=== PATIENT | female | born 1945 | race Caucasian/White ===

== ENCOUNTER 2023-12-30 08:17 | Outpatient (RCR) | payer MEDICARE, OTHER, SELFPAY ==
[2023-12-30 08:40] VITALS: BP 152/66
[2023-12-30] MEDS: XOLAIR 1.19999999999999996 MG SC ×2 (09:06→09:07)
[2023-12-30 10:31] LABS: TSH Reflex To Free T4 5.92 uIU/ml (0.47-4.68)
[2023-12-30 10:59] LABS: Free T4 1.18 ng/dl (0.78-2.19)
== END 2023-12-31 08:51 | disposition home or self-care (01) ==
LOC: OID 08:17
PROVIDERS: ATTENDING PHYSICIAN Internal Medicine; FAMILY PHYSICIAN Nurse Practitioner Family
DX: J45.50 Severe persistent asthma, uncomplicated (principal)
CPT/HCPCS: 36415; 84439; 84443; 96372; J2357

== ENCOUNTER 2024-01-27 08:23 | Outpatient (RCR) | payer MEDICARE, OTHER, SELFPAY ==
[2024-01-27 08:50] VITALS: BP 170/71
[2024-01-27] MEDS: XOLAIR 1.19999999999999996 MG SC ×2 (09:09→09:10)
[2024-01-27 12:40] VITALS: BP 155/72
== END 2024-01-28 11:13 | disposition home or self-care (01) ==
LOC: OID 08:23
PROVIDERS: ATTENDING PHYSICIAN Internal Medicine; FAMILY PHYSICIAN Nurse Practitioner Family
DX: J45.50 Severe persistent asthma, uncomplicated (principal)
CPT/HCPCS: 96372; J2357

== ENCOUNTER 2024-02-24 08:15 | Outpatient (RCR) | payer MEDICARE, OTHER, SELFPAY ==
[2024-02-24 08:45] VITALS: BP 146/73
[2024-02-24] MEDS: XOLAIR 1.19999999999999996 MG SC ×2 (08:59)
== END 2024-03-07 23:59 | disposition home or self-care (01) ==
LOC: OID 08:15
PROVIDERS: ATTENDING PHYSICIAN Internal Medicine; FAMILY PHYSICIAN Nurse Practitioner Family
DX: J45.50 Severe persistent asthma, uncomplicated (principal)
CPT/HCPCS: 96372; J2357

== ENCOUNTER → 2024-03-09 14:22 | Outpatient (REF) | payer MEDICARE, OTHER, SELFPAY | LOC: WDC 14:22 | PROVIDERS: ATTENDING PHYSICIAN Nurse Practitioner Family | DX: Z12.31 Encounter for screening mammogram for malignant neoplasm of breast (principal) | CPT/HCPCS: 77063; 77067 ==

== ENCOUNTER → 2024-03-15 09:47 | Outpatient (REF) | payer MEDICARE, OTHER, SELFPAY ==
[2024-03-15 12:13] LABS: Free T4 1.18 ng/dl (0.78-2.19)
== END ==
LOC: REG 09:47
PROVIDERS: ATTENDING PHYSICIAN Nurse Practitioner Family
DX: E03.9 Hypothyroidism, unspecified (principal)
CPT/HCPCS: 36415; 84439; 84443

== ENCOUNTER 2024-03-23 08:14 | Outpatient (RCR) | payer MEDICARE, OTHER, SELFPAY ==
[2024-03-23 08:51] VITALS: BP 155/69
[2024-03-23] MEDS: XOLAIR 1.19999999999999996 MG SC ×2 (09:12→09:13)
== END 2024-03-24 08:56 | disposition home or self-care (01) ==
LOC: OID 08:14
PROVIDERS: ATTENDING PHYSICIAN Internal Medicine; FAMILY PHYSICIAN Nurse Practitioner Family
DX: J45.50 Severe persistent asthma, uncomplicated (principal)
CPT/HCPCS: 96372; J2357

== ENCOUNTER → 2024-05-10 09:51 | Outpatient (REF) | payer MEDICARE, OTHER, SELFPAY ==
[2024-05-10 12:19] LABS: % Basophils 0.7 % (0-2); % Immature Granulocytes 0.6 % (0-0.5); % Lymphocytes 16.8 % (20.5-51.1); % Monocytes 9.1 % (1.7-9.3); % Neutrophils 69.8 % (42.2-75.2); Absolute Basophils 0.1 10^3/uL (0-0.2); Absolute Eosinophils 0.2 10^3/uL (0-0.7); Absolute Lymphocytes 1.2 10^3/uL (1.2-3.4); Absolute Monocytes 0.7 10^3/uL (0.1-0.6); Absolute Neutrophils 5.1 10^3/uL (1.4-6.5); Hematocrit 36.4 % (37.0-47.0); Hemoglobin 11.7 g/dL (12.0-16.0); Mean Corp Hgb Conc. 32.1 g/dL (33.0-37.0); Mean Corpuscular Hgb 27.3 pg (27.0-31.0); Mean Corpuscular Volume 84.8 fL (81.0-99.0); Mean Platelet Volume 9.9 fL (7.4-10.4); Nucleated Red Blood Cells % 0 %; Platelet Count 313 10^3/uL (130-400); Red Blood Cell Count 4.29 10^6/uL (4.20-5.40); Red Cell Dist. Width 16.7 % (11.5-14.5); White Blood Cell Count 7.3 10^3/uL (4.8-10.8)
[2024-05-10 12:50] LABS: ALT (SGPT) 19 U/L (0-35); AST (SGOT) 32 U/L (14-36); Albumin 4.2 g/dl (3.5-5.0); Alkaline Phosphatase 126 U/L (38-126); Blood Urea Nitrogen 13 mg/dl (7-17); Calcium 9.7 mg/dl (8.4-10.2); Carbon Dioxide 27 mmol/L (22-30); Chloride 103 mmol/L (98-107); Glucose 102 mg/dl (70-99); HDL Cholesterol 32 mg/dl; Iron 80 ug/dl (37-170); LDL Cholesterol, Calculated 76 mg/dl; Potassium 4.7 mmol/L (3.5-5.1); Sodium 136 mmol/L (135-145); Total Bilirubin 0.7 mg/dl (0.2-1.3); Total Cholesterol 140 mg/dl (50-199); Total Protein 6.9 g/dl (6.3-8.2); Triglyceride 161 mg/dl (10-149); Very Low Density Lipoprotein 32 mg/dl (0-30); eGFR > 60.00
[2024-05-10 12:59] LABS: Percent Saturation 27 % (20-50); Total Iron Binding Capacity 296 ug/dl (265-497)
[2024-05-10 13:13] LABS: TSH 3.87 uIU/ml (0.47-4.68)
[2024-05-10 13:38] LABS: Glycohemoglobin (HgbA1c) 5.1 % (4.0-5.6)
== END ==
LOC: REG 09:51
PROVIDERS: ATTENDING PHYSICIAN Nurse Practitioner Family; REFERRING PHYSICIAN Registered Nurse
DX: I10 Essential (primary) hypertension (principal); E03.9 Hypothyroidism, unspecified; E78.00 Pure hypercholesterolemia, unspecified; R53.82 Chronic fatigue, unspecified; R73.9 Hyperglycemia, unspecified; D62 Acute posthemorrhagic anemia
CPT/HCPCS: 36415; 80053; 80061; 82728; 83036; 83540; 83550; 84443; 85025

== ENCOUNTER 2024-05-18 08:27 | Outpatient (RCR) | payer MEDICARE, OTHER, SELFPAY ==
[2024-05-18 08:30] VITALS: BP 144/67
[2024-05-18] MEDS: XOLAIR 1.2 MG SC ×2 (08:54)
== END 2024-05-19 10:20 | disposition home or self-care (01) ==
LOC: OID 08:27
PROVIDERS: ATTENDING PHYSICIAN Internal Medicine; FAMILY PHYSICIAN Nurse Practitioner Family
DX: J45.50 Severe persistent asthma, uncomplicated (principal)
CPT/HCPCS: 96372; J2357

== ENCOUNTER 2024-06-15 08:08 | Outpatient (RCR) | payer MEDICARE, OTHER, SELFPAY ==
[2024-06-15 08:57] VITALS: BP 156/72
[2024-06-15] MEDS: XOLAIR 1.2 MG SC ×2 (09:07→09:08)
== END 2024-07-07 10:39 | disposition home or self-care (01) ==
LOC: OID 08:08
PROVIDERS: ATTENDING PHYSICIAN Internal Medicine; FAMILY PHYSICIAN Nurse Practitioner Family
DX: J45.50 Severe persistent asthma, uncomplicated (principal)
CPT/HCPCS: 96372; J2357

== ENCOUNTER → 2024-06-20 15:16 | Outpatient (REF) | payer MEDICARE, OTHER, SELFPAY | LOC: PAVMRI 15:16 | PROVIDERS: ATTENDING PHYSICIAN Physician Assistant Medical | DX: M54.50 Low back pain, unspecified (principal); M48.062 Spinal stenosis, lumbar region with neurogenic claudication; M41.86 Other forms of scoliosis, lumbar region; Z98.1 Arthrodesis status | CPT/HCPCS: 72148 ==

== ENCOUNTER 2024-07-13 08:15 | Outpatient (RCR) | payer MEDICARE, OTHER, SELFPAY ==
[2024-07-13 08:37] VITALS: BP 163/69
[2024-07-13] MEDS: XOLAIR 1.2 MG SC ×2 (08:48)
== END 2024-07-14 09:53 | disposition home or self-care (01) ==
LOC: OID 08:15
PROVIDERS: ATTENDING PHYSICIAN Internal Medicine; FAMILY PHYSICIAN Nurse Practitioner Family
DX: J45.50 Severe persistent asthma, uncomplicated (principal)
CPT/HCPCS: 96372; J2357

== ENCOUNTER 2024-09-07 08:17 | Outpatient (RCR) | payer MEDICARE, OTHER, SELFPAY ==
[2024-08-10 08:53] VITALS: BP 136/54
[2024-08-10] MEDS: XOLAIR 1.2 MG SC ×2 (09:08→09:09)
[2024-09-07 08:40] VITALS: BP 139/66
[2024-09-07 08:46] VITALS: BMI 32.9
[2024-09-07] MEDS: XOLAIR 1.2 MG SC ×2 (09:14→09:15)
== END 2024-09-07 23:59 | disposition home or self-care (01) ==
LOC: OID 08:17
PROVIDERS: ATTENDING PHYSICIAN Internal Medicine; FAMILY PHYSICIAN Nurse Practitioner Family
DX: J45.50 Severe persistent asthma, uncomplicated (principal)
CPT/HCPCS: 96372; J2357

== ENCOUNTER → 2024-09-08 10:53 | Outpatient (REF) | payer MEDICARE, OTHER, SELFPAY | LOC: HWRAD 10:53 | PROVIDERS: ATTENDING PHYSICIAN Nurse Practitioner Family | DX: R10.10 Upper abdominal pain, unspecified (principal) | CPT/HCPCS: 76700 ==

== ENCOUNTER → 2024-09-26 06:20 | Day surgery (SDC) | payer MEDICARE, OTHER, SELFPAY | LOC: GI 06:20 | PROVIDERS: ATTENDING PHYSICIAN Internal Medicine Gastroenterology | PROC: 0DJ08ZZ Inspection of Upper Intestinal Tract, Via Natural or Artificial Opening Endoscopic (ICD-10-PCS; 2024-09-26) | DX: K22.70 Barrett's esophagus without dysplasia (principal); K31.89 Other diseases of stomach and duodenum | CPT/HCPCS: 43235 ==

== ENCOUNTER 2024-10-06 07:34 | Outpatient (RCR) | payer MEDICARE, OTHER, SELFPAY ==
[2024-10-06 07:48] VITALS: BP 153/69
[2024-10-06] MEDS: XOLAIR 1.2 MG SC ×2 (08:33→08:34)
== END 2024-10-07 23:59 | disposition home or self-care (01) ==
LOC: OID 07:34
PROVIDERS: ATTENDING PHYSICIAN Internal Medicine; FAMILY PHYSICIAN Nurse Practitioner Family
DX: J45.50 Severe persistent asthma, uncomplicated (principal)
CPT/HCPCS: 96372; J2357

== ENCOUNTER 2024-10-31 08:13 | Outpatient (RCR) | payer MEDICARE, OTHER, SELFPAY ==
[2024-10-31 08:48] VITALS: BP 148/62
[2024-10-31] MEDS: XOLAIR 1.2 MG SC ×2 (09:03→09:04)
[2024-10-31 09:40] VITALS: BP 134/67
== END 2024-11-02 08:54 | disposition home or self-care (01) ==
LOC: OID 08:13
PROVIDERS: ATTENDING PHYSICIAN Internal Medicine; FAMILY PHYSICIAN Nurse Practitioner Family
DX: J45.50 Severe persistent asthma, uncomplicated (principal)
CPT/HCPCS: 96372; J2357

== ENCOUNTER 2024-11-30 08:13 | Outpatient (RCR) | payer MEDICARE, OTHER, SELFPAY ==
[2024-11-30 08:30] VITALS: BP 149/77
[2024-11-30] MEDS: XOLAIR 1.2 MG SC ×2 (08:56→08:57)
== END 2024-12-08 23:59 | disposition home or self-care (01) ==
LOC: OID 08:13
PROVIDERS: ATTENDING PHYSICIAN Internal Medicine; FAMILY PHYSICIAN Nurse Practitioner Family
DX: J45.50 Severe persistent asthma, uncomplicated (principal)
CPT/HCPCS: 96372; J2357

== ENCOUNTER 2024-12-28 08:14 | Outpatient (RCR) | payer MEDICARE, OTHER, SELFPAY ==
[2024-12-28 08:35] VITALS: BP 156/85
[2024-12-28] MEDS: XOLAIR 1.2 MG SC ×2 (08:55→08:56)
== END 2024-12-29 08:17 | disposition home or self-care (01) ==
LOC: OID 08:14
PROVIDERS: ATTENDING PHYSICIAN Internal Medicine; FAMILY PHYSICIAN Nurse Practitioner Family
DX: J45.50 Severe persistent asthma, uncomplicated (principal)
CPT/HCPCS: 96372; J2357

== ENCOUNTER 2025-01-25 08:11 | Outpatient (RCR) | payer MEDICARE, OTHER, SELFPAY ==
[2025-01-25 08:37] VITALS: BP 98/66
[2025-01-25] MEDS: XOLAIR 1.2 MG SC ×2 (09:13→09:14)
== END 2025-01-26 08:32 | disposition home or self-care (01) ==
LOC: OID 08:11
PROVIDERS: ATTENDING PHYSICIAN Internal Medicine; FAMILY PHYSICIAN Nurse Practitioner Family
DX: J45.50 Severe persistent asthma, uncomplicated (principal)
CPT/HCPCS: 96372; J2357

== ENCOUNTER 2025-02-22 08:14 | Outpatient (RCR) | payer MEDICARE, OTHER, SELFPAY ==
[2025-02-22 08:31] VITALS: BP 157/71
[2025-02-22] MEDS: XOLAIR 1.2 MG SC ×2 (08:52)
== END 2025-02-23 11:07 | disposition home or self-care (01) ==
LOC: OID 08:14
PROVIDERS: ATTENDING PHYSICIAN Internal Medicine; FAMILY PHYSICIAN Nurse Practitioner Family
DX: J45.50 Severe persistent asthma, uncomplicated (principal)
CPT/HCPCS: 96372; J2357

== ENCOUNTER → 2025-03-13 12:04 | Outpatient (REF) | payer MEDICARE, OTHER, SELFPAY | LOC: WDC 12:04 | PROVIDERS: ATTENDING PHYSICIAN Nurse Practitioner Family | DX: Z12.31 Encounter for screening mammogram for malignant neoplasm of breast (principal) | CPT/HCPCS: 77063; 77067 ==

== ENCOUNTER 2025-03-22 08:06 | Outpatient (RCR) | payer MEDICARE, OTHER, SELFPAY ==
[2025-03-22 08:45] VITALS: BP 143/70
[2025-03-22 08:46] VITALS: BMI 32.9
[2025-03-22] MEDS: XOLAIR 1.2 MG SC ×2 (08:59)
== END 2025-03-23 09:33 | disposition home or self-care (01) ==
LOC: OID 08:06
PROVIDERS: ATTENDING PHYSICIAN Internal Medicine; FAMILY PHYSICIAN Nurse Practitioner Family
DX: J45.50 Severe persistent asthma, uncomplicated (principal)
CPT/HCPCS: 96372; J2357

== ENCOUNTER → 2025-03-27 09:31 | Outpatient (REF) | payer MEDICARE, OTHER, SELFPAY ==
[2025-03-27 10:19] LABS: % Eosinophils 3.1 % (0-6); % Immature Granulocytes 0.6 % (0-0.5); % Lymphocytes 18.5 % (20.5-51.1); % Monocytes 9.9 % (1.7-9.3); % Neutrophils 66.9 % (42.2-75.2); Absolute Basophils 0.1 10^3/uL (0-0.2); Absolute Eosinophils 0.2 10^3/uL (0-0.7); Absolute Lymphocytes 1.3 10^3/uL (1.2-3.4); Absolute Monocytes 0.7 10^3/uL (0.1-0.6); Absolute Neutrophils 4.8 10^3/uL (1.4-6.5); Hematocrit 40.4 % (37.0-47.0); Mean Corp Hgb Conc. 32.2 g/dL (33.0-37.0); Mean Corpuscular Hgb 26.5 pg (27.0-31.0); Mean Corpuscular Volume 82.4 fL (81.0-99.0); Mean Platelet Volume 10.8 fL (7.4-10.4); Nucleated Red Blood Cells % 0 %; Platelet Count 281 10^3/uL (130-400); Red Cell Dist. Width 14.8 % (11.5-14.5); White Blood Cell Count 7.1 10^3/uL (4.8-10.8)
[2025-03-27 10:46] LABS: ALT (SGPT) 22 U/L (0-35); AST (SGOT) 28 U/L (14-36); Albumin 4.4 g/dl (3.5-5.0); Alkaline Phosphatase 92 U/L (38-126); Blood Urea Nitrogen 10 mg/dl (7-17); Calcium 9.9 mg/dl (8.4-10.2); Carbon Dioxide 30 mmol/L (22-30); Chloride 104 mmol/L (98-107); Glucose 100 mg/dl (70-99); HDL Cholesterol 35 mg/dl; LDL Cholesterol, Calculated 92 mg/dl; Potassium 4.7 mmol/L (3.5-5.1); Sodium 140 mmol/L (135-145); Total Bilirubin 0.6 mg/dl (0.2-1.3); Total Cholesterol 154 mg/dl (50-199); Total Protein 7.3 g/dl (6.3-8.2); Triglyceride 136 mg/dl (10-149); Very Low Density Lipoprotein 27 mg/dl (0-30); eGFR > 60.00
[2025-03-27 11:16] LABS: TSH Reflex To Free T4 4.98 uIU/ml (0.47-4.68)
[2025-03-27 11:45] LABS: Free T4 1.39 ng/dl (0.78-2.19)
== END ==
LOC: REG 09:31
PROVIDERS: ATTENDING PHYSICIAN Nurse Practitioner Family; OTHER PHYSICIAN Internal Medicine Cardiovascular Disease
DX: E66.9 Obesity, unspecified (principal); E03.9 Hypothyroidism, unspecified; E78.2 Mixed hyperlipidemia; I10 Essential (primary) hypertension
CPT/HCPCS: 36415; 80053; 80061; 84439; 84443; 85025

== ENCOUNTER 2025-04-19 08:15 | Outpatient (RCR) | payer MEDICARE, OTHER, SELFPAY ==
[2025-04-19 08:45] VITALS: BP 146/84
[2025-04-19] MEDS: XOLAIR 1.2 MG SC ×2 (09:04→09:05)
== END 2025-04-20 08:48 | disposition home or self-care (01) ==
LOC: OID 08:15
PROVIDERS: ATTENDING PHYSICIAN Internal Medicine; FAMILY PHYSICIAN Nurse Practitioner Family
DX: J45.50 Severe persistent asthma, uncomplicated (principal)
CPT/HCPCS: 96372; J2357

== ENCOUNTER 2025-05-17 08:11 | Outpatient (RCR) | payer MEDICARE, OTHER, SELFPAY ==
[2025-05-17 08:23] VITALS: BP 158/72
[2025-05-17] MEDS: XOLAIR 1.2 MG SC ×2 (08:45→08:46)
== END 2025-05-18 08:20 | disposition home or self-care (01) ==
LOC: OID 08:11
PROVIDERS: ATTENDING PHYSICIAN Internal Medicine; FAMILY PHYSICIAN Nurse Practitioner Family
DX: J45.50 Severe persistent asthma, uncomplicated (principal)
CPT/HCPCS: 96372; J2357

== ENCOUNTER 2025-05-21 06:22 | Day surgery (SDC) | payer MEDICARE, OTHER, SELFPAY | END 2025-05-21 09:07 | disposition home or self-care (01) | LOC: GI 06:22 | PROVIDERS: ATTENDING PHYSICIAN Internal Medicine Gastroenterology | DX: Z12.11 Encounter for screening for malignant neoplasm of colon (principal); D12.3 Benign neoplasm of transverse colon; K57.30 Diverticulosis of large intestine without perforation or abscess without bleeding; K64.8 Other hemorrhoids; Z86.0100 Personal history of colon polyps, unspecified; Z80.0 Family history of malignant neoplasm of digestive organs | CPT/HCPCS: 45380; 88305 ==

== ENCOUNTER 2025-06-14 08:10 | Outpatient (RCR) | payer MEDICARE, OTHER, SELFPAY ==
[2025-06-14 08:45] VITALS: BP 161/68; BMI 33.1
[2025-06-14] MEDS: XOLAIR 1.2 MG SC ×2 (09:10→09:11)
[2025-06-14 09:40] VITALS: BP 142/60
== END 2025-06-15 09:45 | disposition home or self-care (01) ==
LOC: OID 08:10
PROVIDERS: ATTENDING PHYSICIAN Internal Medicine; FAMILY PHYSICIAN Nurse Practitioner Family
DX: J45.50 Severe persistent asthma, uncomplicated (principal)
CPT/HCPCS: 96372; J2357

== ENCOUNTER 2025-07-12 08:13 | Outpatient (RCR) | payer MEDICARE, OTHER, SELFPAY ==
[2025-07-12 08:45] VITALS: BP 164/69
[2025-07-12] MEDS: XOLAIR 1.2 MG SC ×2 (08:59→09:00)
== END 2025-07-13 10:36 | disposition home or self-care (01) ==
LOC: OID 08:13
PROVIDERS: ATTENDING PHYSICIAN Internal Medicine; FAMILY PHYSICIAN Nurse Practitioner Family
DX: J45.50 Severe persistent asthma, uncomplicated (principal)
CPT/HCPCS: 96372; J2357

== ENCOUNTER → 2025-07-23 09:49 | Outpatient (REF) | payer MEDICARE, OTHER, SELFPAY ==
[2025-07-23 11:02] LABS: Hematocrit 39.6 % (37.0-47.0); Hemoglobin 12.5 g/dL (12.0-16.0); Mean Corp Hgb Conc. 31.6 g/dL (33.0-37.0); Mean Corpuscular Volume 81.5 fL (81.0-99.0); Nucleated Red Blood Cells % 0 %; Platelet Count 266 10^3/uL (130-400); Red Cell Dist. Width 14.8 % (11.5-14.5)
[2025-07-23 11:59] LABS: ALT (SGPT) 23 U/L (0-35); AST (SGOT) 32 U/L (14-36); Albumin 4.4 g/dl (3.5-5.0); Alkaline Phosphatase 92 U/L (38-126); Blood Urea Nitrogen 11 mg/dl (7-17); Calcium 9.9 mg/dl (8.4-10.2); Carbon Dioxide 29 mmol/L (22-30); Chloride 102 mmol/L (98-107); Glucose 95 mg/dl (70-99); HDL Cholesterol 32 mg/dl; LDL Cholesterol, Calculated 98 mg/dl; Magnesium 2.2 mg/dl (1.6-2.3); Potassium 4.7 mmol/L (3.5-5.1); Sodium 139 mmol/L (135-145); Total Protein 7.4 g/dl (6.3-8.2); Very Low Density Lipoprotein 29 mg/dl (0-30); eGFR > 60.00
[2025-07-23 12:48] LABS: Vitamin B12 828 pg/ml (239-931)
== END ==
LOC: REG 09:49
PROVIDERS: ATTENDING PHYSICIAN Nurse Practitioner Adult Health
DX: I10 Essential (primary) hypertension (principal); J45.20 Mild intermittent asthma, uncomplicated; K21.9 Gastro-esophageal reflux disease without esophagitis; E03.9 Hypothyroidism, unspecified; E78.2 Mixed hyperlipidemia; I35.0 Nonrheumatic aortic (valve) stenosis; Z87.19 Personal history of other diseases of the digestive system; R53.82 Chronic fatigue, unspecified; Z79.899 Other long term (current) drug therapy
CPT/HCPCS: 36415; 80053; 80061; 82607; 83735; 84443; 85025

== ENCOUNTER 2025-09-06 08:15 | Outpatient (RCR) | payer MEDICARE, OTHER, SELFPAY ==
[2025-08-09 08:47] VITALS: BP 154/57
[2025-08-09] MEDS: XOLAIR 1.2 MG SC ×2 (08:57)
[2025-09-06 08:44] VITALS: BP 160/56
[2025-09-06] MEDS: XOLAIR 1.2 MG SC ×2 (08:48)
[2025-09-06 09:31] VITALS: BP 154/77
== END 2025-09-07 23:59 | disposition home or self-care (01) ==
LOC: OID 08:15
PROVIDERS: ATTENDING PHYSICIAN Internal Medicine; FAMILY PHYSICIAN Nurse Practitioner Family
DX: J45.50 Severe persistent asthma, uncomplicated (principal)
CPT/HCPCS: 96372; J2357

== ENCOUNTER 2025-10-03 08:13 | Outpatient (RCR) | payer MEDICARE, OTHER, SELFPAY ==
[2025-10-03 08:46] VITALS: BP 156/64
[2025-10-03] MEDS: XOLAIR 1.2 MG SC ×2 (08:56→08:57)
== END 2025-10-05 11:17 | disposition home or self-care (01) ==
LOC: OID 08:13
PROVIDERS: ATTENDING PHYSICIAN Internal Medicine; FAMILY PHYSICIAN Nurse Practitioner Adult Health
DX: J45.50 Severe persistent asthma, uncomplicated (principal)
CPT/HCPCS: 96372; J2357

== ENCOUNTER 2025-10-31 08:08 | Outpatient (RCR) | payer MEDICARE, OTHER, SELFPAY ==
[2025-10-31 08:24] VITALS: BP 179/70
[2025-10-31] MEDS: XOLAIR 1.2 MG SC ×2 (08:42)
== END 2025-11-02 08:59 | disposition home or self-care (01) ==
LOC: OID 08:08
PROVIDERS: ATTENDING PHYSICIAN Internal Medicine; FAMILY PHYSICIAN Nurse Practitioner Adult Health
DX: J45.50 Severe persistent asthma, uncomplicated (principal)
CPT/HCPCS: 96372; J2357